=== PATIENT | male | born 1990 | race Caucasian/White ===

== ENCOUNTER 2016-09-13 13:55 | Emergency (ER) | payer SELFPAY ==
[~2016-09-13] VITALS: Ht 182.9 cm; Wt 73.5 kg
[~2016-09-13 13:55] MED LIST: IBUP600T26 PO
[2016-09-13 14:03] VITALS: BP 119/79; PULSE 96; RESP 18; TEMP 98.8; O2SAT 98
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
[2016-09-13] MEDS ORDERED: IBUPROFEN 600 MG TAB PO ONE (15:00)
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
[2016-09-13 16:10] VITALS: BP 117/60; PULSE 78; O2SAT 99
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
[2016-09-13] MEDS ORDERED: oxyCODONE/ACETAMINOPHEN 5 MG/325 MG TAB PO ONE (16:30)
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
[2016-09-13] MEDS ORDERED: ROBA500T PO (16:53)
[2016-09-13] MEDS ORDERED: PERC5TAB12 PO (16:53)
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
== END 2016-09-13 17:07 | disposition home or self-care (01) ==
LOC: PHED 13:55
DX: S09.90XA Unspecified injury of head, initial encounter (principal); S16.1XXA Strain of muscle, fascia and tendon at neck level, initial encounter; S29.019A Strain of muscle and tendon of unspecified wall of thorax, initial encounter; S39.012A Strain of muscle, fascia and tendon of lower back, initial encounter; S46.919A Strain of unspecified muscle, fascia and tendon at shoulder and upper arm level, unspecified arm, initial encounter; R07.89 Other chest pain; F17.200 Nicotine dependence, unspecified, uncomplicated; Z87.39 Personal history of other diseases of the musculoskeletal system and connective tissue; Z87.09 Personal history of other diseases of the respiratory system; V89.2XXA Person injured in unspecified motor-vehicle accident, traffic, initial encounter
CPT/HCPCS: 70450; 71010; 72072; 72100; 72125; 73030; 99285

== ENCOUNTER 2016-11-26 08:14 | Emergency (ER) | payer SELFPAY ==
[~2016-11-26] VITALS: Ht 182.9 cm; Wt 70.0 kg
[~2016-11-26 08:14] MED LIST changes: +PERC5TAB12 PO; +ROBA500T PO
[2016-11-26 08:15] VITALS: BP 125/82; PULSE 92; RESP 24; TEMP 97.4; O2SAT 100
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
[2016-11-26] MEDS ORDERED: CEPH-460 PO (08:43)
[2016-11-26] MEDS ORDERED: ONDANSETRON HCL 4 MG/2 ML VIAL ONE (08:49)
== END 2016-11-26 09:05 | disposition home or self-care (01) ==
LOC: NETRI 08:14 → EDTENT 09:05
DX: S90.414A Abrasion, right lesser toe(s), initial encounter (principal); F17.200 Nicotine dependence, unspecified, uncomplicated; Z79.899 Other long term (current) drug therapy; W45.8XXA Other foreign body or object entering through skin, initial encounter
CPT/HCPCS: 99283; J2405